=== PATIENT | male | born 2005 ===

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

== ENCOUNTER 2024-02-19 11:17 | Emergency (ER) | payer OTHER, SELFPAY ==
--- NOTE | 2024-02-19 11:27 | ED_ITS ---
HPI - URI/Sore Throat General Chief Complaint: Upper Respiratory Infection Stated Complaint: Strep Symptoms Time Seen by Provider: 02/19/24 11:30 Source: patient Mode of arrival: ambulatory Limitations: no limitations History of Present Illness HPI Narrative: Ramsey is a 18-year-old male patient presenting to the clinic today with complaints a sore throat x5 days. He reports no runny nose or cough. No known fever. States he felt dizzy on but that has subsided. No known sick contacts Related Data Allergies Allergy/AdvReac Type Severity Reaction Status Date / Time cefdinir [From Omnicef] Allergy Hives Verified 02/19/24 12:03 Review of Systems Review of Systems: Pertinent positives per HPI. Patient denies any fever, chills, rash, headache, visual changes, dizziness, cough, runny nose, sore throat, shortness of breath, chest pain, palpitations, nausea, vomiting, diarrhea, constipation, abdominal pain, or any urinary issues. PMFSH Comments At the time of my signature, I reviewed and agree with the nursing past medical, surgical, social, and family history. There is no relevant family history pertinent to the patient complaint. Exam Narrative: General: Well-developed, well nourished, in no apparent distress Head: Normocephalic, atraumatic Eyes: Pupils equally round and reactive to light bilaterally, EOM intact, sclera and conjunctive clear, no discharge, lids normal Ears: TMs intact and clear, ear canals clear, no drainage, grossly hearing normal. Nose: Nares patent, no discharge, no inflammation, no sinus tenderness. Mouth: Oropharynx red with bilateral tonsillar swelling without lesions or masses, good dentition, MMM. Neck: Supple, trachea midline, enlargement of anterior cervical nodes, no thyroid masses or goiter palpable. Cardio: Regular rate and rhythm, s1 and s2 normal, no murmur appreciated. Resp: Clear to auscultation bilaterally anteriorly and posteriorly, no rhonchi, rales, wheezing or rubs Course Course Emergency Course: Portions of this record may have been created with voice recognition software. Level of Care: Express Care Visit Vital Signs Vital signs: Vital Signs Temperature 37.2 C 02/19/24 11:37 Pulse Rate 95 02/19/24 11:37 Respiratory Rate 15 02/19/24 11:37 Blood Pressure 121/66 02/19/24 11:37 Pulse Oximetry 100 02/19/24 11:37 Oxygen Delivery Room Air 02/19/24 11:37 Temperature 37.2 C 02/19/24 11:37 Pulse Rate 95 02/19/24 11:37 Respiratory Rate 15 02/19/24 11:37 Blood Pressure 121/66 02/19/24 11:37 Pulse Oximetry 100 02/19/24 11:37 Oxygen Delivery Room Air 02/19/24 11:37 Vital signs reviewed MDM - URI/Sore Throat MDM Narrative Medical decision making narrative: At the time of visit patient is resting comfortably on the exam table. Patient appears to be nontoxic. Labs: Strep and mono testing was negative in the clinic today. We will send strep for culture. Plan: I suspect patient has pharyngitis. Will send over prescription for prednisone to help with the swelling and inflammation as well as some viscous lidocaine. Supportive measures were discussed with the patient and they voiced understanding discharge instructions and agrees to treatment plan. Return precautions reviewed Differential Diagnosis Differential diagnosis: Likely upper respiratory infection, croup, otitis media, sinusitis, viral infection, bronchitis, influenza, pharyngitis and other ([place]) Lab Data Labs: Lab Results 02/19/24 02/19/24 Range/Units 11:41 12:03 POC Monoscreen Negative (Positive) POC Grp A Strep Screen Negative (Negative) Discharge Plan Discharge Clinical Impression: Pharyngitis Patient Disposition: Home, Self-Care Condition: Stable Instructions: Antibiotic Form, Pharyngitis (ED) Additional Instructions: Strep and mono test was negative in the clinic today. We will send strep for culture. Take viscous lidocaine and prednisone as directed Increase fluids and stay well hydrated Tylenol/motrin for pain/fever Flonase and OTC antihistamines as directed Vicks vapor rub to open sinuses Sinus rinses for congestion Cepacol spray, cough drops, throat lozenges, warm tea with honey/lemon, gargle salt water to soothe throat BRAT diet for diarrhea Clear liquids x 24 hours then advance as tolerated for nausea/vomiting Go to the ED if you develop a worsening in your condition- high fever not controlled by Tylenol or Motrin, dehydration, weakness, lethargy, shortness of breath, or chest pain. Follow up with your PCP in 3-5 days if symptoms persist. Prescriptions: New prednisone 20 mg tablet 40 mg PO DAILY 5 Days Qty: 10 0RF lidocaine HCl [Lidocaine Viscous] 2 % solution 1 applic mucous membrane QID PRN (Reason: pain) 7 Days Qty: 100 1RF Follow-up/Referrals: Angela Bobby MD [Primary Care Provider] - Stand Alone Forms: Work/School Release IP Time of Disposition: 12:04 Quality NIHSS Nursing Documentation ED NIHSS nursing documentation: reviewed/agree
[2024-02-19 11:37] VITALS: BP 121/66; PULSE 95; RESP 15; TEMP 37.2; O2SAT 100
[2024-02-19 11:49] LABS: EDSTREPNEGPOS1 Negative (Negative)
[2024-02-19 12:08] LABS: EDMONONEGPOS Negative (Positive)
== END 2024-02-19 12:10 | disposition home or self-care (01) ==
PROVIDERS: Emergency Provider Nurse Practitioner Family; PCP Pediatrics
DX: J02.9 Acute pharyngitis, unspecified (principal)
CPT/HCPCS: 36416; 86308; 87081; 87880; 99203; G0463

== ENCOUNTER 2024-02-25 07:07 | Emergency (ER) | payer OTHER, SELFPAY ==
--- NOTE | ~2024-02-25 | CT_ITS ---
CT scan of the Neck Technique: 2.5 mm axial scans were obtained through the neck after intravenous administration of 75 c c Omnipaque 350. Coronal and sagittal reconstructions of the neck were obtained. Dose reduction techn ique was used on this scan by utilizing automated exposure control and iterative reconstruction techn ique. The dose-length product (DLP) was 598.84 mGy-cm. Clinical History: Peritonsillar abscess Findings: There is a 3.0 x 2.4 x 3.0 cm somewhat ill-defined right peritonsillar abscess, with mass effect resu lting in airway compression and deviation to the left at this level. There is mild infiltration of ri ght parapharyngeal fat. There is associated right cervical lymphadenopathy, especially level 2, presu mably reactive/inflammatory. Prominent edematous change extends inferiorly to the right side of the g lottic region, with swelling obscuring visualization of the right area epiglottic folds and laryngeal vestibule. Parotid and submandibular glands are unremarkable. Vascular structures enhance normally. The thyroid gland appears normal. Images of the lung apices reveal no abnormalities. Impression: 3.0 x 2.4 x 3.0 cm ill-defined right peritonsillar abscess with extensive edematous change extending inferiorly to the right glottic region. Associated predominantly level 2 right cervical lymphadenopathy, most likely reactive/inflammatory. Reviewed, dictated and finalized at [facility]. [employer]ICIAN Impression: 3.0 x 2.4 x 3.0 cm ill-defined right peritonsillar abscess with extensive edema tous change extending inferiorly to the right glottic region. Associated predominantly level 2 right cervical lymphadenopathy, most likely re active/inflammatory.
[2024-02-25 07:17] VITALS: BP 145/88; PULSE 85; RESP 16; TEMP 36.7; O2SAT 100
[2024-02-25] MEDS: SODIUM CHLORIDE 0.9% IV 1,000 ML 999 ML IV CONT (07:56)
--- NOTE | 2024-02-25 07:57 | ED.GENADULT ---
HPI - General Adult General Chief complaint: Unspecified Stated complaint: swelling to throat Time Seen by Provider: 02/25/24 07:26 History of Present Illness HPI narrative: patient is a 18-year-old gentleman who presents emergency department with chief complaint of sore throat. Patient reports that he has been having a sore throat pain with swallowing for the last several days patient reports he was seen in urgent care and had negative strep and negative mono the patient was started on steroids and reports that his sore throat has progressively got worse and hurts whenever he swallows the patient has noticed that his voice has become more muffled Related Data Allergies Allergy/AdvReac Type Severity Reaction Status Date / Time cefdinir (From Omnicef) Allergy Hives Verified 02/25/24 07:17 Review of Systems Review of Systems: A 10 system review of systems was completed on the patient and is negative except for what is stated in the HPI. Nursing and ancillary documentation was reviewed. Exam Narrative: GENERAL: Well-appearing, well-nourished, and in no acute distress. HEAD: Normocephalic, atraumatic. EYES: PERRLA and EOMI. ENT: Nares clear, no rhinorrhea or epistaxis. Mucous membranes moist. right tonsil is enlarged and appears to be asymmetrical compared to the left NECK: Supple. CHEST: Clear to auscultation. No respiratory distress. HEART: Regular rate and rhythm. No murmur heard. Normal peripheral pulses. ABDOMEN: Soft, nontender, nondistended, normal active bowel sounds. EXTREMITIES: Normal range of motion. No edema. SKIN: Warm, dry, no rash. NEURO: No focal deficits. Alert and oriented x3. PSYCH: Normal mood and affect. Course Vital Signs Vital signs: Vital Signs Temperature 36.7 C 02/25/24 07:17 Pulse Rate 85 02/25/24 07:17 Respiratory Rate 16 02/25/24 07:17 Blood Pressure 145/88 H 02/25/24 07:17 Pulse Oximetry 100 02/25/24 07:17 Oxygen Delivery Room Air 02/25/24 07:17 Temperature 36.7 C 02/25/24 07:17 Pulse Rate 107 H 02/25/24 12:08 Respiratory Rate 12 02/25/24 12:08 Blood Pressure 127/82 02/25/24 12:08 Pulse Oximetry 100 02/25/24 12:08 Oxygen Delivery Room Air 02/25/24 07:17 Medical Decision Making Vital Signs Vital Signs: Vital Signs Temperature 36.7 C 02/25/24 07:17 Pulse Rate 85 02/25/24 07:17 Respiratory Rate 16 02/25/24 07:17 Blood Pressure 145/88 H 02/25/24 07:17 Pulse Oximetry 100 02/25/24 07:17 Oxygen Delivery Room Air 02/25/24 07:17 Temperature 36.7 C 02/25/24 07:17 Pulse Rate 107 H 02/25/24 12:08 Respiratory Rate 12 02/25/24 12:08 Blood Pressure 127/82 02/25/24 12:08 Pulse Oximetry 100 02/25/24 12:08 Oxygen Delivery Room Air 02/25/24 07:17 Lab Data 02/25/24 07:51 02/25/24 07:51 Labs: Lab Results 02/25/24 02/25/24 Range/Units 07:39 07:51 WBC 15.4 H (4.5-10.0) K/mm3 RBC 5.32 (4.6-6.20) M/mm3 Hgb 15.8 (14.0-18.0) g/dL Hct 46.4 (42.0-52.0) % MCV 87.2 (80-100) fl MCH 29.7 (26-34) pg MCHC 34.1 (32-36) g/dl RDW 11.5 (11.5-14.5) % Plt Count 321 (150-375) k/mm3 MPV 8.7 (7.4-10.4) fl Immature Gran % (Auto) 0.6 H (0-0.5) % Neut % (Auto) 79.0 H (45.5-73.1) % Lymph % (Auto) 9.3 L (18.3-44.2) % [place] % (Auto) 9.7 H (2.6-8.5) % Eos % (Auto) 1.0 (0-4.4) % Baso % (Auto) 0.4 (0.2-1.2) % Lymph # (Auto) 1.44 (0.9-3.2) K/mm3 [place] # (Auto) 1.5 H (0.1-0.6) K/mm3 Eos # (Auto) 0.2 (0-0.3) K/mm3 Baso # (Auto) 0.1 (0.0-0.1) K/mm3 Abs Immat Gran (auto) 0.10 H (0.00-0.031) K/mm3 Absolute Neuts (auto) 12.2 H (1.3-6.7) K/mm3 Absolute Nucleated RBC 0.000 (0.0-0.012) K/mm3 Nucleated RBC % 0.0 (0.0-0.2) % Sodium 139 (134-143) mmol/L Potassium 3.7 (3.4-5.0) mmol/L Chloride 100 (98-107) mmol/L Carbon Dioxide 31 H (22-30) mmol/L Anion Gap 8 (4-12) mmol/L BUN 9 (8-21) mg/dL Creatinine 0.90 (0.7-1.3) mg/dL Estim Creat Clear Calc Not Reportable Estimated GFR > 60 (59 - ) Glucose 118 H (65-110) mg/dL Lactic Acid 1.1 (0.7-2.0) mmol/L Calcium 9.5 (8.9-10.7) mg/dL Total Bilirubin 0.9 (0.2-1.3) mg/dL AST 18 (17-59) U/L ALT 21 (6-50) U/L Alkaline Phosphatase 102 (58-237) U/L Total Protein 9.0 H (6.3-8.6) g/dL Albumin 4.5 (3.7-5.6) g/dL Influenza A (RT-PCR) Negative (Negative) Influenza B (RT-PCR) Negative (Negative) RSV (RT-PCR) Negative (Negative) SARS-CoV-2 RNA (RT-PCR) Negative (Negative) Group A Strep (PCR) Not detected (Negative) Discharge Plan Discharge Clinical Impression: Abscess, peritonsillar Patient Disposition: Home, Self-Care Condition: Stable Instructions: Antibiotic Form, Peritonsillar Abscess (ED) Additional Instructions: please call Dr. Simental's office on Monday morning to schedule for a follow-up appointment. Patient Language: Cuban Prescriptions: New amoxicillin-pot clavulanate 875-125 mg tablet 1 tablet PO Q12H 10 Days Qty: 20 0RF hydrocodone-acetaminophen 5-325 mg tablet 1 tablet PO Q6H PRN (Reason: pain) 3 Days Qty: 12 0RF No Action prednisone 20 mg tablet 40 mg PO DAILY 5 Days Qty: 10 0RF lidocaine HCl [Lidocaine Viscous] 2 % solution 1 applic mucous membrane QID PRN (Reason: pain) 7 Days Qty: 100 1RF Follow-up/Referrals: Pablo Simental MD [Other] Angela Bobby MD [Primary Care Provider] - Time of Disposition: 12:25
[2024-02-25] MEDS: dexAMETHasone SOD PHOS INJ 10 MG/ML 1 ML VIAL IV PUSH (07:59)
[2024-02-25] MEDS: KETOROLAC 15 MG/ML VIAL (*BKC) IV PUSH (07:59)
[2024-02-25 08:01] VITALS: BP 121/79; PULSE 76; RESP 12; O2SAT 97
[2024-02-25 08:04] LABS: Basophils Absolute Auto 0.1 K/mm3 (0.0-0.1); Basophils Percent Auto 0.4 % (0.2-1.2); Eosinophils Absolute Auto 0.2 K/mm3 (0-0.3); Hematocrit 46.4 % (42.0-52.0); Hemoglobin 15.8 g/dL (14.0-18.0); Immature Granulocyte Percent A 0.6 % (0-0.5); Lymphocytes Absolute Auto 1.44 K/mm3 (0.9-3.2); Lymphocytes Percent Auto 9.3 % (18.3-44.2); Mean Corpuscular HGB Conc 34.1 g/dl (32-36); Mean Corpuscular Hemoglobin 29.7 pg (26-34); Mean Corpuscular Volume 87.2 fl (80-100); Mean Platelet Volume 8.7 fl (7.4-10.4); Monocytes Absolute Auto 1.5 K/mm3 (0.1-0.6); Monocytes Percent Auto 9.7 % (2.6-8.5); Neutrophils Absolute Auto 12.2 K/mm3 (1.3-6.7); Platelet Count Result 321 k/mm3 (150-375); Red Blood Count 5.32 M/mm3 (4.6-6.20); Red Cell Distribution Width 11.5 % (11.5-14.5); White Blood Count 15.4 K/mm3 (4.5-10.0)
[2024-02-25 08:08] LABS: Strep Group A RT-PCR NOT DETECTED (Negative)
[2024-02-25 08:19] LABS: Influenza A QL RT-PCR Negative (Negative); Influenza B QL RT-PCR Negative (Negative); RSV RNA, RT-PCR Negative (Negative); SARS-CoV-2 RNA PCR Negative (Negative)
[2024-02-25 08:22] LABS: Alanine Aminotransferase 21 U/L (6-50); Albumin Level 4.5 g/dL (3.7-5.6); Alkaline Phosphatase 102 U/L (58-237); Anion Gap 8 mmol/L (4-12); Aspartate Amino Transferase 18 U/L (17-59); Bilirubin,Total 0.9 mg/dL (0.2-1.3); Blood Urea Nitrogen 9 mg/dL (8-21); Calcium 9.5 mg/dL (8.9-10.7); Carbon Dioxide 31 mmol/L (22-30); Chloride 100 mmol/L (98-107); Estimated Glomerular Filt Rate > 60; Glucose 118 mg/dL (65-110); Potassium 3.7 mmol/L (3.4-5.0); Sodium 139 mmol/L (134-143)
[2024-02-25 08:24] LABS: Lactic Acid Reflex 1.1 mmol/L (0.7-2.0)
[2024-02-25 09:25] VITALS: BP 135/77; PULSE 77; RESP 13; O2SAT 98
[2024-02-25] MEDS: AMPICILLIN SULB 3 GM/NS 100 ML 3 GM/100 ML VIAL IVPB (09:25)
[2024-02-25 10:34] VITALS: BP 116/61; PULSE 94; RESP 15; O2SAT 99
--- NOTE | 2024-02-25 11:12 | PC.NURSE ---
Report given to Luz Elena DUMONT, all questions answered
[2024-02-25 12:08] VITALS: BP 127/82; PULSE 107; RESP 12; O2SAT 100
--- NOTE | 2024-02-25 12:20 | P.CONS_ITS ---
Assessment and Plan Assessment and plan (1) Abscess, peritonsillar: Code(s): J36 - Peritonsillar abscess Status: Acute Plan After consent was obtained, topical acetacaine sprayed to oropharynx. 1% lidocaine was infilrated into the soft palate. A 2cm incision was made with 11 blade and dissection performed with tonsil clamp and significant purulent fluid drained from abscess. This was done several times until satisfied with I&D. Pt tolerated without complication. Ramsey had a right TECHNICAL IMPLEMENTATION LEAD. Drained in ER. Send home with antibiotics. Reviewed return parameters with pt and father today. Follow up in ENT clinic next week. HPI Data of Consult Date/Time: 02/25/24 12:20 Primary Care Provider: Angela Bobby MD Consult Narrative Reason for consult: Peritonsillar abscess Narrative: Ramsey Becerril is a 18 year old male with right peritonsillar abscess, onset over about a week, progressive. was given steroid taper by UC, no abx, came to ER today after not improving and imaging showed right [employer]CHNICAL IMPLEMENTATION LEAD Review of Systems 2 Review of Systems: All systems reviewed & are unremarkable except as noted in HPI and below Meds Home Medications and Allergies Home Medications ?Medication ?Instructions ?Recorded ?Confirmed ?Type lidocaine HCl 2 % mucosal solution 1 applic mucous membrane QID PRN 02/19/24 Rx (Lidocaine Viscous) pain 7 days #100 mL prednisone 20 mg tablet 40 mg (2 x 20 mg) PO DAILY 5 days 02/19/24 Rx #10 tabs amoxicillin 875 mg-potassium 1 tablet PO Q12H 10 days #20 tabs 02/25/24 Rx clavulanate 125 mg tablet hydrocodone 5 mg-acetaminophen 325 1 tablet PO Q6H PRN pain 3 days 02/25/24 Rx mg tablet #12 tabs Allergies Allergy/AdvReac Type Severity Reaction Status Date / Time cefdinir (From Omnicef) Allergy Hives Verified 02/25/24 07:17 Vital Signs Vital Signs - 24 hr 02/25/24 07:17 02/25/24 08:01 02/25/24 09:25 Temperature 36.7 C Pulse Rate 85 76 77 Respiratory Rate 16 12 13 Blood Pressure 145/88 H 121/79 135/77 Pulse Oximetry 100 97 98 Oxygen Delivery Room Air 02/25/24 10:34 02/25/24 12:08 Temperature Pulse Rate 94 107 H Respiratory Rate 15 12 Blood Pressure 116/61 127/82 Pulse Oximetry 99 100 Oxygen Delivery Exam 2 Narrative: Moderate trismus. No stridor. Pt not in distress. Exam of OP shows large right soft palate bulge, uvular deviation with significant uvular edema, right tonsillar hypertrophy. Airway clear and secretions tolerated. Const: General: cooperative Results Labs 02/25/24 07:51 02/25/24 07:51 Labs: Short CBC 02/25/24 Range/Units 07:51 WBC 15.4 H (4.5-10.0) K/mm3 Hgb 15.8 (14.0-18.0) g/dL Hct 46.4 (42.0-52.0) % Plt Count 321 (150-375) k/mm3 BMP 02/25/24 07:51 Sodium 139 Potassium 3.7 Chloride 100 Carbon Dioxide 31 H BUN 9 Creatinine 0.90 Glucose 118 H Calcium 9.5 Liver Function 02/25/24 Range/Units 07:51 Total Bilirubin 0.9 (0.2-1.3) mg/dL AST 18 (17-59) U/L ALT 21 (6-50) U/L Alkaline Phosphatase 102 (58-237) U/L Albumin 4.5 (3.7-5.6) g/dL
[2024-02-25 12:56] VITALS: BP 117/78; PULSE 71; RESP 16; TEMP 36.9; O2SAT 100
--- OUTSIDE RECORDS SUMMARY | 2024-02-29 16:03 | XMS_ITS | Clinical Summary ---
Author Organization [facility] Address [address] [place] [address] Care Team Providers Care Supervisor Tellers Name Role Phone Angela Bobby MD Primary Care Provider [phone] Source Comments [facility],non-owned Affiliates and Associated Physician Practices is amultiple site organization consisting of ambulatory clinics and hospital sitesin [place], [place], [place] and [place]. This disclosure is being madepursuant to the Care Everywhere program and may not contain all information available regarding this patient. Last updated 17.[facility] Allergies Active Allergy Reactions Criticality Noted Date Comments Cefdinir Rash High 05/11/2010 Medications * Be aware that medications may not be up to date on this document. Alwaysverify current medications with the patient. Medication Sig Dispensed Refills Start Date End Date Status ibuprofen (ADVIL; MOTRIN) 100 MG/5ML SUSP suspension Take 150 mg by mouth every 6 hours as needed. Active amoxicillin (AMOXIL) 400 MG/5ML SUSR suspension Take 5 mL by mouth 3 times daily. 1 Bottle 0 05/11/2010 Active Social History Tobacco Use Types Packs/Day Years Used Date Smoking Tobacco: Never Assessed Sex and Gender Information Value Date Recorded Sex Assigned at Not on file Gender Identity Not on file Sexual Orientation Not on file Last Filed Vital Signs Vital Sign Reading Time Taken Comments Blood Pressure 99/57 05/11/2010 7:58 PM LANGUAGE ASST Pulse 120 05/11/2010 9:47 PM LANGUAGE ASST Temperature 38.2 ??C (100.8 ??F) 05/11/2010 9:[address] Respiratory Rate 28 05/11/2010 9:47 PM LANGUAGE ASST Oxygen Saturation 98% 05/11/2010 9:47 PM LANGUAGE ASST RA Inhaled Oxygen Concentration - - Weight 22.5 kg (49 lb 9.7 oz) 05/11/2010 4:12 PM LANGUAGE ASST Height - - Body Mass Index - - Plan of Treatment Health Maintenance Due Date Last Done Comments HIV SCREENING 10/09/2019 HPV VACCINE (1 - Male 3-dose series) 10/09/2019 HEPATITIS C SCREENING 10/04/2022 DEPRESSION SCREENING 03/13/2023 DTAP/TDAP/TD VACCINES (1 - Tdap) 10/09/2023 HEPATITIS B VACCINE (1 of 3 - 19+ 3-dose series) 10/09/2023 COVID-19 VACCINE (1 - 2023-2 5 season) 2023 INFLUENZA VACCINE (#1) 2023 ZOSTER VACCINE (1 of 2) 2054 HIB VACCINE Aged Out No longer eligi ble based on patient's age to complete this topic MENINGOCOCCAL VACCINE Aged Out No amanda nick eligible based on patient's age to complete this topic PNEUMOCOCCAL VACCINE Aged Out No long er eligible based on patient's age to complete this topic Care Teams Supervisor Tellers Relationship Specialty Start Date End Date Angela Bobby MD [address] [place] [address] PCP - General 09/08/10
--- OUTSIDE RECORDS SUMMARY | 2024-02-29 16:03 | XMS_ITS | Patient Health Summary ---
Author Organization [facility] Address [address] [place] [address] Care Team Providers Care Barmaid Name Role Phone Angela Bobby MD Primary Care Provider [phone] Note from [facility],non-owned Affiliates and Associated Physician Practices is amultiple site organization consisting of ambulatory clinics and hospital sitesin [place], [place], [place] and [place]. This disclosure is being madepursuant to the Care Everywhere program and may not contain all information available regarding this patient. Last updated 17.[facility] Allergies * Cefdinir(Rash) -High Criticality Medications * Be aware that medications may not be up to date on this document. Alwaysverify current medications with the patient. * ibuprofen (ADVIL; MOTRIN) 100 MG/5ML SUSP suspension Take 150 mg by mouth every 6 hours as needed. * amoxicillin (AMOXIL) 400 MG/5ML SUSR suspension(Started 05/11/2010) Take 5 mL by mouth 3 times daily. Social History Tobacco Use Types Packs/Day Years Used Date Smoking Tobacco: Never Assessed Sex and Gender Information Value Date Recorded Sex Assigned at Not on file Gender Identity Not on file Sexual Orientation Not on file Last Filed Vital Signs Vital Sign Reading Time Taken Comments Blood Pressure 99/57 05/11/2010 7:58 PM CRITICAL CARE CLINICAL NURSE SPECIALIST Pulse 120 05/11/2010 9:47 PM CRITICAL CARE CLINICAL NURSE SPECIALIST Temperature 38.2 ??C (100.8 ??F) 05/11/2010 9:[address] Respiratory Rate 28 05/11/2010 9:47 PM CRITICAL CARE CLINICAL NURSE SPECIALIST Oxygen Saturation 98% 05/11/2010 9:47 PM CRITICAL CARE CLINICAL NURSE SPECIALIST RA Inhaled Oxygen Concentration - - Weight 22.5 kg (49 lb 9.7 oz) 05/11/2010 4:12 PM CRITICAL CARE CLINICAL NURSE SPECIALIST Height - - Body Mass Index - - Procedures * XR CHEST 2VW(Performed 09/08/2010) Performed for Follow-up exam * DIFFERENTIAL MANUAL(Performed 05/11/2010) * CBC W AUTO DIFFERENTIAL(Performed 05/11/2010) * CULTURE BLOOD(Performed 05/11/2010) * XR CHEST 2VW(Performed 05/11/2010) Performed for Viral infection * URINALYSIS REFLEX TO MICROSCOPIC NO CULTURE(Performed 05/11/2010) * CULTURE URINE(Performed 05/11/2010) Results * XR CHEST PA AND LATERAL (09/08/2010 10:31 AM CDT) Only the most recent of2 resultswithin the time period is included. Anatomical Region Laterality Modality Chest Radiographic Marylu ging 09/08/2010 10:3 4 AM CDT Impressions 09/08/2010 2:16 PM CDT Resolved right upper lobe round pneumonia. D: Pamela Hinojosa M.D. Narrative 09/08/2010 2:16 PM CDT Chest, 2 views The previously noted right upper lobe round opacity has resolved. The heart, mediastinum and thorax are normal. Procedure Note Chiara Phillips MD - 09/08/2010 Chest, 2 views The previously noted right upper lobe round opacity has resolved. The heart, mediastinum and thorax are normal. IMPRESSION Resolved right upper lobe round pneumonia. D: Pamela Hinojosa M.D. Angela Bobby MD DIAGNOSTIC IMAGING ORDERABLES * (ABNORMAL) DIFFERENTIAL MANUAL (05/11/2010 8:24 PM CRITICAL CARE CLINICAL NURSE SPECIALIST) Comment Manual Diff Done [facility] Band % Manual 10 % [facility] Neutrophils % Manual 52 20 - 70 % [facility] Lymphocytes % Manual 22 16 - 70 % [facility] Monocytes % Manual 14(H) 3 - 13 % [facility] Atypical Lymphocyte % Manual 2 % [facility] RBC Morphology Slight Anisocytosis Poikylocytosis [facility] BLOOD SPECIMEN / Unknown 05/11/2010 8:24 PM CRITICAL CARE CLINICAL NURSE SPECIALIST 05/11/2010 8:32 PM CRITICAL CARE CLINICAL NURSE SPECIALIST Janette Benites MD LAB - HEMATOLOGY ORD ERABLES Performing Organization Address [facility] Co de Phone Number [facility] [address] [place] [address] * (ABNORMAL) CBC W AUTO DIFFERENTIAL (05/11/2010 8:24 PM CRITICAL CARE CLINICAL NURSE SPECIALIST) WBC 17.89(H) 5.0 - 14.5 K/cumm [facility] RBC 4.15 3.90 - 5.30 mill/cumm [facility] Hemoglobin 11.6 11.5 - 13.5 gm/dl [facility] Hematocrit 33.3(L) 34.0 - 40.0 % [facility] MCV 80.2 75.0 - 87.0 cu microns [facility] MCH 28.0 24.0 - 30.0 uug [facility] MCHC 34.8 31.0 - 37.0 % [facility] RDW 13.4 % [facility] MPV 8.6 fl [facility] Platelet Count 220 100 - 400 K/cumm [facility] Comment Manual Diff Done [facility] BLOOD SPECIMEN / Unknown 05/11/2010 8:24 PM CRITICAL CARE CLINICAL NURSE SPECIALIST 05/11/2010 8:26 PM CRITICAL CARE CLINICAL NURSE SPECIALIST Janette Benites MD LAB - HEMATOLOGY ORD ERABLES Performing Organization Address [facility] Co de Phone Number [facility] [address] [place] [phone] * CULTURE BLOOD (05/11/2010 6:50 PM CRITICAL CARE CLINICAL NURSE SPECIALIST) Result [facility] Comment: Final No growth in 5 days. PERIPHERAL BLOOD / Unknown 05/11/2010 6:50 PM CRITICAL CARE CLINICAL NURSE SPECIALIST 05/11/2010 7:12 PM CRITICAL CARE CLINICAL NURSE SPECIALIST Narrative Resulting Agency Comment Performed By [facility];[address] [place] [address];[place] [address] Mahin Cooper DO LAB - MICROBIOLOGY O RDERABLES Performing Organization Address [facility]/ZIP Co de Phone Number [facility] [address] [place] [address] * (ABNORMAL) URINALYSIS ROUTINE AUTO (05/11/2010 5:35 PM CRITICAL CARE CLINICAL NURSE SPECIALIST) Color UA YELLOW [facility] Character UA SL CLOUDY [facility] Specific [place] UA >=1.030 1.003 - 1.030 [facility] pH UA 6.0 5.0 - 8.0 [facility] Protein UA 1+ Negative [facility] Glucose UA NEGATIVE Negative gm/dl [facility] Ketone UA 3+(AA) Negative [facility] Blood UA NEGATIVE Negative [facility] Bilirubin UA NEGATIVE Negative [facility] Reducing Substances UA 1/4(H) Negative % [facility] WBC UA 2-4 /HPF [facility] Epithelial Cell UA 0-2 /HPF [facility] Crystals UA Small Amorphous [facility] Mucus UA mod [facility] Bacteria UA sm [facility] Leukocyte UA NEGATIVE [facility] Nitrite UA NEGATIVE [facility] Urobilinogen UA 0.2 <=1.0 EU/dl [facility] URINE SPECIMEN OBTAINED BY CLEAN CATCH PROCEDURE / Unknown 05/11/2010 5:35 PM CRITICAL CARE CLINICAL NURSE SPECIALIST 05/11/2010 6:14 PM CRITICAL CARE CLINICAL NURSE SPECIALIST Janette Benites MD LAB - URINALYSIS ORD ERABLES Performing Organization Address City/[facility] Co de Phone Number [facility] [place] [address] * CULTURE URINE (05/11/2010 5:35 PM CRITICAL CARE CLINICAL NURSE SPECIALIST) Result [facility] Comment: Final CULTURE <1000 CFU/mL (No growth) URINE SPECIMEN OBTAINED BY CLEAN CATCH PROCEDURE / Unknown 05/11/2010 5:35 PM CRITICAL CARE CLINICAL NURSE SPECIALIST 05/11/2010 6:14 PM CRITICAL CARE CLINICAL NURSE SPECIALIST Narrative Resulting Agency Comment Performed By [facility];[address];[place] [address] Janette Benites MD LAB - MICROBIOLOGY O RDERABLES Performing Organization Address City/[facility]/ZIP Co de Phone Number [facility] [address] [place] [phone] Care Teams Barmaid Relationship Specialty Start Date End Date Angela Bobby MD [address] [place] [address] [facility] - General 09/08/10
--- OUTSIDE RECORDS SUMMARY | 2024-02-29 16:03 | XMS_ITS | Encounter Summary ---
Author Organization [facility] Address [address] [place] [address] Care Team Providers Care Automation And Controls Instructor Name Role Phone Angela Bobby MD Primary Care Provider [phone] Encounter Details Date Type Department Care Team (Latest Contact Info) Description 09/08/2010 10:25 AM CDT - 09/08/2010 11:59 PM CDT Hospital Encounter [facility] - Radiology [address] [place] [id number] Discharge Disposition: Home or Self Care Social History Tobacco Use Types Packs/Day Years Used Date Smoking Tobacco: Never Assessed Sex and Gender Information Value Date Recorded Sex Assigned at Not on file Gender Identity Not on file Sexual Orientation Not on file documented as of this encounter Medications at Time of Discharge Medication Sig Dispensed Refills Start Date End Date ibuprofen (ADVIL; MOTRIN) 100 MG/5ML SUSP suspension Take 150 mg by mouth every 6 hours as needed. amoxicillin (AMOXIL) 400 MG/5ML SUSR suspension Take 5 mL by mouth 3 times daily. 1 Bottle 0 05/11/2010 documented as of this encounter Miscellaneous Notes * Miscellaneous Scans - Document, Scanned - 09/14/2010 4:13 PM CDT * Miscellaneous Scans - Document, Scanned - 09/13/2010 6:48 AM CDT documented in this encounter Plan of Treatment Not on file documented as of this encounter Procedures Procedure Name Priority Date/Time Associated Diagnosis Comments XR CHEST 2VW Routine 09/08/2010 10:31 AM CDT Follow-up exam documented in this encounter Results * XR CHEST PA AND LATERAL (09/08/2010 10:31 AM CDT) Anatomical Region Laterality Modality Chest Radiographic Marylu [...] M.D. Angela Bobby MD DIAGNOSTIC IMAGING ORDERABLES documented in this encounter Visit Diagnoses Diagnosis Follow-up exam Unspecified follow-up examination documented in this encounter Care Teams Automation And Controls Instructor Relationship Specialty Start Date End Date Angela Bobby MD [address] [place] [address] PCP - General 09/08/10 documented as of this encounter
--- OUTSIDE RECORDS SUMMARY | 2024-02-29 16:03 | XMS_ITS | Encounter Summary ---
Author Organization [facility] Address [address] [place] [address] Care Team Providers Care Geological Science Teacher Name Role Phone Angela Bobby MD Primary Care Provider [phone] Encounter Details Date Type Department Care Team (Latest Contact Info) Description 09/08/2010 10:08 AM CDT - 09/08/2010 11:59 PM T Hospital Encounter [facility] - Radiology [address] [place] [address] Angela Bobby MD [address] [facility] [address] [place] [address] Radiology Diagnostic Discharge Disposition: Home or Self Care Social [...] 0 05/11/2010 documented as of this encounter Plan of Treatment Not on file documented as of this encounter Visit Diagnoses Not on filedocumented in this encounter Care Teams Geological Science Teacher Relationship Specialty Start Date End Date Angela Bobby MD [address] [facility] [address] [place] [address] PCP - General 09/08/10 documented as of this encounter
--- OUTSIDE RECORDS SUMMARY | 2024-02-29 16:03 | XMS_ITS | Encounter Summary ---
Author Organization [facility] Address [address] [address] Care Team Providers Care Retail Sales Consultant Name Role Phone Irene Reynolds MD Primary Care Provider [phone] Reason for Visit * Reason Comments Fever 1 d. h/o fever Tmax 104; seen by Dr. Reynolds today and sent here for further eval; denies cough. dec po today; uop x1 today. lungs clear. Encounter Details Date Type Department Care Team (Late st Contact Info) Description 05/11/2010 3:51 PM CLINICAL MEDICAL ASSISTANT - 05/11/2010 9:49 PM CLINICAL MEDICAL ASSISTANT Emergency ER at [address] [address] Janette Benites MD [address] [place], [place] [id number] Viral infection; Pneumonia, organism unspecified Discharge Disposition: Home or Self Care Social History Tobacco Use Types Packs/Day Years Used Date Smoking Tobacco: Never Assessed Sex and Gender Information Value Date Recorded Sex Assigned at Not on file Gender Identity Not on file Sexual Orientation Not on file documented as of this encounter Last Filed Vital Signs Vital Sign Reading Time Taken Comments Blood Pressure 99/57 05/11/2010 7:58 PM CLINICAL MEDICAL ASSISTANT Pulse 120 05/11/2010 9:47 PM CLINICAL MEDICAL ASSISTANT Temperature 38.2 ??C (100.8 ??F) 05/11/2010 9:[address] Respiratory Rate 28 05/11/2010 9:47 PM CLINICAL MEDICAL ASSISTANT Oxygen Saturation 98% 05/11/2010 9:47 PM CLINICAL MEDICAL ASSISTANT RA Inhaled Oxygen Concentration - - Weight 22.5 kg (49 lb 9.7 oz) 05/11/2010 4:12 PM CLINICAL MEDICAL ASSISTANT Height - - Body Mass Index - - documented in this encounter Discharge Instructions * Discharge Instructions* Ronald Fournier RN - 05/11/2010 9:35 PM CLINICAL MEDICAL ASSISTANT Antibiotic Treatment and Drug Resistance Antibiotics are very helpful drugs. They are used to treat bacterial infections. But they do not help viral infections. Because antibiotics are used so often, some bacteria do not respond to them. Respiratory illnesses are mostly caused by viral infections. These will get better without using antibiotics. If an antibiotic is prescribed for a viral illness, a patient may notice bad side effects. Some of these may be: ?? Allergic reactions. ?? Diarrhea. ?? Abdominal discomfort. ?? Vomiting. ?? Yeast infection. Antibiotics also can be expensive. Paying for an antibiotic to treat a viral illness is both a medical risk and a waste of money. The use of antibiotics has fostered the growth of resistant bacteria. These bacteria can cause infections which are harder to treat. For these reasons, doctors are more selective in prescribing antibiotics. If you have not received an antibiotic today, be sure to follow up as directed if you are not improving. If you have received an antibiotic, take it as directed. Finish the full course. Keep your caregiver informed of any side effects. Document Released: 04/06/2005 Document Re-Released: 08/15/2008 ExitCare?? Patient Information ??2010 ExitCare, Antibiotic Treatment and Drug Resistance Antibiotics are very helpful drugs. They are used to treat bacterial infections. But they do not help viral infections. Because antibiotics are used so often, some bacteria do not respond to them. Respiratory illnesses are mostly caused by viral infections. These will get better without using antibiotics. If an antibiotic is prescribed for a viral illness, a patient may notice bad side effects. Some of these may be: ?? Allergic reactions. ?? Diarrhea. ?? Abdominal discomfort. ?? Vomiting. ?? Yeast infection. Antibiotics also can be expensive. Paying for an antibiotic to treat a viral illness is both a medical risk and a waste of money. The use of antibiotics has fostered the growth of resistant bacteria. These bacteria can cause infections which are harder to treat. For these reasons, doctors are more selective in prescribing antibiotics. If you have not received an antibiotic today, be sure to follow up as directed if you are not improving. If you have received an antibiotic, take it as directed. Finish the full course. Keep your caregiver informed of any side effects. Document Released: 04/06/2005 Document Re-Released: 08/15/2008 ExitCare?? Patient Information ??2009 [employer]. Viral Illness Your exam indicates you have a viral illness. SYMPTOMS ?? Fever. ?? Muscle aches. ?? Headache. ?? Fatigue. ?? Stomach upsets. ?? Sore throat. ?? Dry cough. Antibiotic drugs are not effective in viral illnesses. They are only given when there is a secondary bacterial infection. TREATMENT ?? Bed rest. ?? Increasing oral fluid intake of clear, non-caffeinated drinks like marimar emily, fruit juices, water, or sports (electrolyte) drinks, and ?? Medicine to relieve specific symptoms such as cough, pain, or diarrhea. Only take qzyc-meg-oryfwmi or prescription medicines for pain, discomfort, or fever as directed by your caregiver. Please call your caregiver if you are not better after 2-3 days of symptom treatment. CALL OR RETURN HERE RIGHT AWAY IF YOUR ILLNESS GETS MORE SEVERE, OR YOU DEVELOP ANY OTHER NEW SYMPTOMS, SUCH ?? A fever above 103?? F (39.4?? C). ?? Vomiting for more than a day. ?? Severe headache or other pain. ?? Stiff neck. ?? Trouble breathing. ?? Visual problems. ?? Blackouts or fainting. Document Released: 04/06/2005 Document Re-Released: 08/15/2008 ExitCare?? Patient Information ??2009 [employer]. Pneumonia Pneumonia is an infection of the lungs which may be viral or bacterial (with germs). Most forms of infectious (disease producing) pneumonias are bacterial. This means they are caused by a germ. Usually these infections are caused by breathing in infectious particles into the lungs (respiratory tract). SYMPTOMS The most common problems (symptoms) are: ?? Cough. ?? Fever. ?? Chest pain. ?? Increased rate of breathing. ?? Wheezing. ?? Sputum production. DIAGNOSIS Often these infections are diagnosed on exam by your caregiver. Sometimes the diagnosis may requirechest x-rays, blood analysis, and or cultures. ?? Your caregiver may do tests (such as blood gasses or pulse oximetry) to see how well your lungs are working. ?? Blood cultures may be done to help find the cause of your pneumonia. TREATMENT The bacterial pneumonias generally respond well to antibiotics (medications which kill germs). Viral infections must run their course. These infections will not respond to antibiotics. A pneumococcalvaccine (shot) is available to prevent a common bacterial pneumonia. This is usually suggested for the elderly and for other groups of higher risk individuals, such as those on chemotherapy or those that have problems with their immune system. ?? You will have pneumococcal screening or vaccination if you are over 65 years old and are not immunized. ?? If you are a smoker, it is time to quit. You will receive instructions on how to best stop smoking. Your caregivers can provide medications and counseling to help you quit. HOME CARE INSTRUCTIONS ?? Cough suppressants may be used if you are losing too much rest; however cough protects you by clearing your lungs. This is one reason for not using cough suppressants, if able, as they take away this protection. ?? Your caregiver may have prescribed an antibiotic if she or he feels your cough is caused by a bacterial infection. Take all your medication until you are finished. ?? Your caregiver may also prescribe an expectorant to loosen the mucus to be coughed up. ?? Only take gdau-eio-ijhcyyn or prescription medicines for pain, discomfort, or fever as directed by your caregiver. ?? Smoking is a common cause of bronchitis and can contribute to pneumonia. Stopping this habit is an important self help step. ?? A cold steam vaporizer or humidifier in your room or home may help loosen mucus. ?? Cough is most often worse at night. Sleeping in a semi-upright position in a recliner, or using a couple pillows under your head will help with this. ?? Get rest as you feel it is needed. Your body will usually let you know when to rest. ?? If you are a smoker and continue to smoke, your cough may last several weeks after your pneumonia has cleared. SEEK IMMEDIATE MEDICAL CARE IF: ?? You develop more purulent (pus like) sputum, have uncontrolled temperature, or your illness becomes worse. This is especially true if you are elderly or weakened from any other disease. ?? You cannot control your cough with suppressants and are losing sleep. ?? You begin coughing up blood. ?? You develop pain which is getting worse or is uncontrolled with medications. ?? You develop an oral temperature above 102?? F (38.9?? C), after being afebrile (not having a temperature for one or more days). ?? Any of the symptoms which initially brought you in for treatment are getting worse rather than better, or you develop shortness of breath or chest pain. Dial your local emergency service (911 in the [place] for immediate emergency care. MAKE SURE YOU: ?? Understand these instructions. ?? Will watch your condition. ?? Will get help right away if you are not doing well or get worse. Document Released: 02/27/2006 Document Re-Released: 05/26/2009 ExitCare?? Patient Information ??2009 [employer]. ICAL MEDICAL ASSISTANT * Discharge Instructions* Document, Scanned - 05/24/2010 8:01 AM CDT documented in this encounter Medications at Time of Discharge Medication Sig Dispensed Refills Start Date End Date ibuprofen (ADVIL; MOTRIN) 100 MG/5ML SUSP suspension Take 150 mg by mouth every 6 hours as needed. amoxicillin (AMOXIL) 400 MG/5ML SUSR suspension Take 5 mL by mouth 3 times daily. 1 Bottle 0 05/11/2010 documented as of this encounter ED Notes * Ronald Fournier RN - 05/11/2010 9:48 PM CST Pt awake & alert. LCTA with good aeration, MMM. Pt emir 4oz juice without diff. Pt & parentsinstructed to encourage large amounts of fluids & all verbalize understanding. NAD noted. ICAL MEDICAL ASSISTANT * Ronald Fournier RN - 05/11/2010 7:25 PM CST BS report received from Briseyda Nova RN & care assumed. Pt awake & alert. Pt tearful from blood draw. Pt denies any other pain/discomfort. LCTA with good aeration, MMM, pt crying tears, no s/s resp distress or WOB noted. ICAL MEDICAL ASSISTANT * Briseyda Fenton RN - 05/11/2010 6:59 PM CST Pt has had chest xray complete. Back in room eating popsicle Parents at bedside. ICAL MEDICAL ASSISTANT * Briseyda Fenton RN - 05/11/2010 6:19 PM CST Pt eating and taking juice. Voices no c/o at this time Parents at bedside updated on plan. ICAL MEDICAL ASSISTANT * Briseyda Fenton RN - 05/11/2010 5:47 PM CST Pt attempted to give urine mom instructed how to cleanse , pt could not give specimen at this time Dr Benites has been in to speak to dad while pt was in the bathroom. ICAL MEDICAL ASSISTANT * Janette Benites MD - 05/11/2010 5:15 PM CST 05/11/2010 5:15 PM Ramsey Becerril [id number] [facility] EMERGENCY DEPT History Chief Complaint Patient presents with ??? Fever 1 d. h/o fever Tmax 104; seen by Dr. Reynolds today and sent here for further eval; denies cough. dec po today; uop x1 today. lungs clear. HPI Comments: Ramsey Becerril is a 4 y.o. Male previously well, sent in by PMD for evaluation of feverto 103 which started yesterday. Had fever last week as well, taking motrin with some improvement. Pain when he urinates. No cough Or congestion. No sore throat, no nausea or vomiting. Little more tired today neg RS and flu in the PMD office No past medical history on file. No past surgical history on file. History Social History ??? Marital Status: Single Spouse Name: N/A Number of Children: N/A ??? Years of Education: N/A Occupational History ??? Not on file. Social History Main Topics ??? Smoking status: Not on file ??? Smokeless tobacco: Not on file ??? Alcohol Use: Not on file ??? Drug Use: Not on file ??? Sexually Active: Not on file Other Topics Concern ??? Not on file Social History Narrative ??? No narrative on file Medications Current outpatient prescriptions Medication Sig Dispense Refill ??? ibuprofen (ADVIL; MOTRIN) 100 MG/5ML SUSP suspension Take 150 mg by mouth every 6 hours as needed. ??? amoxicillin (AMOXIL) 400 MG/5ML SUSR suspension Take 5 mL by mouth 3 times daily. 1 Bottle 0 Review of Systems Constitutional: Positive for fever and fatigue. Negative for appetite change. HENT: Negative. Eyes: Negative. Respiratory: Negative. Cardiovascular: Negative. Gastrointestinal: Negative. Genitourinary: Positive for dysuria. Musculoskeletal: Negative. Skin: Negative. Neurological: Negative. Hematological: Negative. Pulse 112 Temp 98.9 ??F Resp 18 Wt 22.5 kg (49 lb 9.7 oz) SpO2 98% Physical Exam Constitutional: He appears well-nourished. He is active. No distress. HENT: Right Ear: Tympanic membrane normal. Left Ear: Tympanic membrane normal. Mouth/Throat: Oropharynx is clear. Cardiovascular: Normal rate and regular rhythm. Pulses are strong. No murmur heard. Pulmonary/Chest: Effort normal and breath sounds normal. There is normal air entry. No respiratory distress. He exhibits no retraction. Abdominal: Soft. Bowel sounds are normal. Neurological: He is alert. Skin: Skin is warm. Capillary refill takes less than 3 seconds. No rash noted. Procedures Procedures EKG Interpretation Lab/SPO2 Interpretation Medical Decision Making I have reviewed the: Nursing Notes and Vitals. I have interpreted the following results: Labs and X-Ray. I have discussed the case with Family/Caregiver. I have personally seen and examined this patient. I have fully participated in the care of this patient. I have reviewed all pertinent clinical information available to me during this encounter, including history, physical exam and plan. I have reviewed available labs and radiographic studies. I reviewed the nurses notes I reviewed the vital signs Progress Notes ED Plan/Course 4yo with fever mild dysuria -U/A negative except for ketones -mild WBC elevation, RUL infiltrate on CXR -will d/c home on abx, contact PMD--unable to contact Clinical Impression Encounter Diagnoses Name Primary? Viral infection ??? Pneumonia, organism unspecified ICAL MEDICAL ASSISTANT * Mahin Cooper, DO - 05/11/2010 4:39 PM CST 05/11/2010 4:39 PM Ramsey Becerril [id number] [facility] EMERGENCY DEPT History Chief Complaint Patient presents with ??? Fever 1 d. h/o fever Tmax 104; seen by Dr. Reynolds today and sent here for further eval; denies cough. dec po today; uop x1 today. lungs clear. HPI Comments: Pt saw Dr. Reynolds today and he wanted pt to come in for further evaluation of CXR and blood work. Fever The history is provided by the patient and parent. This is a recurrent problem. The current episodestarted 6 to 12 hours ago. The problem occurs intermittent. The problem has not changed since onset. The maximum temperature noted was 103 - 104 F. There has been sleepiness, cough, ear pain and decreased urine volume. There has been no diarrhea, no congestion and no headaches.It is unknown what precipitates the cough. The cough is non-productive. He has tried ibuprofen for the symptoms. The treatment provided mild relief. The patient was able to tolerate oral intake. No past medical history on file. No past surgical history on file. History Social History ??? Marital Status: Single Spouse Name: N/A Number of Children: N/A ??? Years of Education: N/A Occupational History ??? Not on file. Social History Main Topics ??? Smoking status: Not on file ??? Smokeless tobacco: Not on file ??? Alcohol Use: Not on file ??? Drug Use: Not on file ??? Sexually Active: Not on file Other Topics Concern ??? Not on file Social History Narrative ??? No narrative on file Medications Current outpatient prescriptions Medication Sig Dispense Refill ??? ibuprofen (ADVIL; MOTRIN) 100 MG/5ML SUSP suspension Take 150 mg by mouth every 6 hours as needed. Review of Systems Constitutional: Positive for fever. HENT: Positive for ear pain. Negative for congestion. Respiratory: Positive for cough. Negative for wheezing. Gastrointestinal: Negative for nausea, abdominal pain and diarrhea. Genitourinary: Positive for dysuria and decreased urine volume. Neurological: Negative for headaches. Pulse 128 Temp 98.9 ??F Resp 28 Wt 22.5 kg (49 lb 9.7 oz) SpO2 98% Physical Exam Constitutional: No distress. HENT: Head: Atraumatic. Right Ear: Tympanic membrane normal. Left Ear: Tympanic membrane normal. Nose: No nasal discharge. Mouth/Throat: Mucous membranes are moist. Oropharynx is clear. Eyes: Extraocular motions are normal. Pupils are equal, round, and reactive to light. Right eye exhibits no discharge. Left eye exhibits no discharge. Neck: Normal range of motion. Neck supple. No adenopathy. Cardiovascular: Regular rhythm. No murmur heard. Pulmonary/Chest: Effort normal and breath sounds normal. Abdominal: Soft. Bowel sounds are normal. He exhibits distension. No tenderness. Musculoskeletal: Normal range of motion. Neurological: He is alert. No cranial nerve deficit. Coordination normal. Skin: Skin is warm. He is diaphoretic. Procedures Procedures EKG Interpretation Lab/SPO2 Interpretation Medical Decision Making Progress Notes ED Plan/Course Clinical Impression No diagnosis found. ICAL MEDICAL ASSISTANT documented in this encounter Miscellaneous Notes * Miscellaneous Scans - Document, Scanned - 06/26/2010 7:36 AM CDT * Miscellaneous Scans - Document, Scanned - 06/25/2010 12:04 PM CDT documented in this encounter Plan of Treatment Not on file documented as of this encounter Procedures Procedure Name Priority Date/Time Associated Diagnosis Comments DIFFERENTIAL MANUAL STAT 05/11/2010 8 :24 PM CLINICAL MEDICAL ASSISTANT CBC W AUTO DIFFERENTIAL STAT 05/11/2010 8:24 PM CLINICAL MEDICAL ASSISTANT CULTURE BLOOD Timed 05/11/2010 6:50 PM CLINICAL MEDICAL ASSISTANT XR CHEST 2VW STAT 05/11/2010 6:40 PM CLINICAL MEDICAL ASSISTANT Viral infection URINALYSIS REFLEX TO MICROSCOPIC NO CULTURE STAT 05/11/2010 5:35 PM CLINICAL MEDICAL ASSISTANT CULTURE URINE STAT 05/11/2010 5:35 PM CLINICAL MEDICAL ASSISTANT documented in this encounter Results * (ABNORMAL) DIFFERENTIAL MANUAL (05/11/2010 8:24 PM CLINICAL MEDICAL ASSISTANT) Comment Manual Diff Done [facility] Band % Manual 10 % [facility] Neutrophils % Manual 52 20 - 70 % [facility] Lymphocytes % Manual 22 16 - 70 % [facility] Monocytes % Manual 14(H) 3 - 13 % [facility] Atypical Lymphocyte % Manual 2 % [facility] RBC Morphology Slight Anisocytosis Poikylocytosis [facility] BLOOD SPECIMEN / Unknown 05/11/2010 8:24 PM CLINICAL MEDICAL ASSISTANT 05/11/2010 8:32 PM CLINICAL MEDICAL ASSISTANT Janette Benites MD LAB - HEMATOLOGY ORD ERABLES Performing Organization Address City/[facility] Co de Phone Number [facility] [address] [place] [address] * (ABNORMAL) CBC W AUTO DIFFERENTIAL (05/11/2010 8:24 PM CLINICAL MEDICAL ASSISTANT) WBC 17.89(H) 5.0 - 14.5 K/cumm [facility] RBC 4.15 3.90 - 5.30 mill/cumm [facility] Hemoglobin 11.6 11.5 - 13.5 gm/dl [facility] Hematocrit 33.3(L) 34.0 - 40.0 % [facility] MCV 80.2 75.0 - 87.0 cu microns [facility] MCH 28.0 24.0 - 30.0 uug [facility] MCHC 34.8 31.0 - 37.0 % [facility] RDW 13.4 % [facility] MPV 8.6 fl [facility] Platelet Count 220 100 - 400 K/cumm [facility] Comment Manual Diff Done [facility] BLOOD SPECIMEN / Unknown 05/11/2010 8:24 PM CLINICAL MEDICAL ASSISTANT 05/11/2010 8:26 PM CLINICAL MEDICAL ASSISTANT Janette Benites MD LAB - HEMATOLOGY ORD ERABLES Performing Organization Address City/[facility] Co de Phone Number [facility] [address] [place] [address] * CULTURE BLOOD (05/11/2010 6:50 PM CLINICAL MEDICAL ASSISTANT) Result [facility] Comment: Final No growth in 5 days. PERIPHERAL BLOOD / Unknown 05/11/2010 6:50 PM CLINICAL MEDICAL ASSISTANT 05/11/2010 7:12 PM CLINICAL MEDICAL ASSISTANT Narrative Resulting Agency Comment Performed By [facility];[address] [place] [address];[place] [id number] Mahin Cooper DO LAB - MICROBIOLOGY O RDERABLES [facility] [place] [address] * XR CHEST PA AND LATERAL (05/11/2010 6:40 PM CLINICAL MEDICAL ASSISTANT) Anatomical Region Laterality Modality Chest Radiographic Marylu ging 05/12/2010 8:00 AM CLINICAL MEDICAL ASSISTANT Impressions 05/12/2010 8:00 AM CLINICAL MEDICAL ASSISTANT Probable round pneumonia, right upper lobe. Recommend followup examination after completion of treatment to exclude underlying mass. Narrative 05/12/2010 8:00 AM CLINICAL MEDICAL ASSISTANT Chest PA and lateral No prior examinations are available for comparison. The cardiomediastinal silhouette is normal. A rounded opacity is present in the right upper lobe in the posterior segment. The lungs are otherwise free of peripheral opacity. Procedure Note Chiara Phillips MD - 05/12/2010 Chest PA and lateral No prior examinations are available for comparison. The cardiomediastinal silhouette is normal. A rounded opacity is present in the right upper lobe in the posterior segment. The lungs are otherwise free of peripheral opacity. IMPRESSION Probable round pneumonia, right upper lobe. Recommend followup examination after completion of treatment to exclude underlying mass. Mahin Cooper DO DIAGNOSTIC IMAGING O RDERABLES * CULTURE URINE (05/11/2010 5:35 PM CLINICAL MEDICAL ASSISTANT) Result [facility] Comment: Final CULTURE <1000 CFU/mL (No growth) URINE SPECIMEN OBTAINED BY CLEAN CATCH PROCEDURE / Unknown 05/11/2010 5:35 PM CLINICAL MEDICAL ASSISTANT 05/11/2010 6:14 PM CLINICAL MEDICAL ASSISTANT Narrative Resulting Agency Comment Performed By [facility];[address] [place] [address];[place] [address] Janette Benites MD LAB - MICROBIOLOGY O RDERABLES Performing Organization Address [facility] de Phone Number [facility] [address] [place] [address] * (ABNORMAL) URINALYSIS ROUTINE AUTO (05/11/2010 5:35 PM CLINICAL MEDICAL ASSISTANT) Color UA YELLOW [facility] Character UA SL CLOUDY [facility] Specific [place] UA >=1.030 1.003 - 1.030 [facility] pH UA 6.0 5.0 - 8.0 [facility] Protein UA 1+ Negative [facility] Glucose UA NEGATIVE Negative gm/dl [facility] Ketone UA 3+(AA) Negative [facility] Blood UA NEGATIVE Negative [facility] Bilirubin UA NEGATIVE Negative [facility] Reducing Substances UA 1/4(H) Negative % [facility] WBC UA 2-4 /HPF [facility] Epithelial Cell UA 0-2 /HPF [facility] Crystals UA Small Amorphous [facility] Mucus UA mod [facility] Bacteria UA sm [facility] Leukocyte UA NEGATIVE [facility] Nitrite UA NEGATIVE [facility] Urobilinogen UA 0.2 <=1.0 EU/dl [facility] URINE SPECIMEN OBTAINED BY CLEAN CATCH PROCEDURE / Unknown 05/11/2010 5:35 PM CLINICAL MEDICAL ASSISTANT 05/11/2010 6:14 PM CLINICAL MEDICAL ASSISTANT Janette Benites MD LAB - URINALYSIS ORD ERABLES Performing Organization Address [facility] Phone Number [facility] [facility] [address] [place] [address] documented in this encounter Visit Diagnoses Diagnosis Unspecified viral infection, in conditions classified elsewhere and of unspecified site Pneumonia, organism unspecified(486) Pneumonia, organism unspecified documented in this encounter Administered Medications Inactive Administered Medications - up to 3 most recent administrations Medication Order MAR Action Action Date Dose Rate Site ibuprofen (ADVIL; MOTRIN) suspension 220 mg 220 mg (9.78 mg/kg), Oral, ONCE, 1 dose, On Mon05/11/10 at 1999, Shake well before using $ Given 05/11/2010 8:03 PM CLINICAL MEDICAL ASSISTANT 220 mg ibuprofen (ADVIL; MOTRIN) suspension ADS Med 1 dose, Starting on Mon05/11/10 at 2001, Until Mon05/11/10 at 2003, RONALD FOURNIER: Cabinet Override documented in this encounter Active and Recently Administered Medications Times are shown in CLINICAL MEDICAL ASSISTANT. Scheduled Medication Order 05/09/2010 05/10/2010 05/11/2010 ibuprofen (ADVIL; MOTRIN) suspension 220 mg (COMPLETED) 220 mg (9.78 mg/kg), Oral, ONCE, 1 dose, On Mon05/11/10 at 2000, Shake well before using 2002 ($ Given - Prov ider: Ronald Fournier RN) documented in this encounter Care Teams Retail Sales Consultant Relationship Specialty Start Date End Date Irene Reynolds MD [address] [facility] [address] [place] [address] PCP - General 05/11/10 09/07/10 documented as of this encounter
--- OUTSIDE RECORDS SUMMARY | 2024-02-29 16:03 | XMS_ITS | Referral Summary ---
Author Organization [facility] Address [address] [place] [address] Care Team Providers Care Physicians Assistant Name Role Phone Angela Bobby MD Primary Care Provider [phone] Source Comments [facility],non-owned Affiliates and Associated Physician Practices is amultiple site organization consisting of ambulatory clinics and hospital sitesin [place], [place], [place] and [place]. This disclosure is being madepursuant to the Care Everywhere program and may not contain all information available regarding this patient. Last updated 17.[facility] Allergies Active Allergy Reactions Criticality Noted Date [...] Comments Blood Pressure 99/57 05/11/2010 7:58 PM MASSAGE COORDINATOR Pulse 120 05/11/2010 9:47 PM MASSAGE COORDINATOR Temperature 38.2 ??C (100.8 ??F) 05/11/2010 9:[address] Respiratory Rate 28 05/11/2010 9:47 PM MASSAGE COORDINATOR Oxygen Saturation 98% 05/11/2010 9:47 PM MASSAGE COORDINATOR RA Inhaled Oxygen Concentration - - Weight 22.5 kg (49 lb 9.7 oz) 05/11/2010 4:12 PM MASSAGE COORDINATOR Height - - Body Mass Index - - Plan of Treatment Not on file Care Teams Physicians Assistant Relationship Specialty Start Date End Date Angela Bobby MD [address] [id number] PCP - General 09/08/10
--- OUTSIDE RECORDS SUMMARY | 2024-02-29 16:38 | XMS_ITS | Referral Summary ---
Author Organization [facility] Address [address] [place] [address] Care Team Providers Care Engine Research Engineer Name Role Phone Angela Bobby MD Primary Care Provider [phone] Source Comments [facility],non-owned Affiliates and Associated Physician Practices is amultiple site organization consisting of ambulatory clinics and hospital sitesin [place], [place] and [place]. This disclosure is being madepursuant to the Care Everywhere program and may not contain all information available regarding this patient. Last updated 17.[facility] Allergies Active Allergy Reactions Criticality Noted Date [...] Comments Blood Pressure 99/57 05/11/2010 7:58 PM NETTING INSPECTOR Pulse 120 05/11/2010 9:47 PM NETTING INSPECTOR Temperature 38.2 ??C (100.8 ??F) 05/11/2010 9:[address] Respiratory Rate 28 05/11/2010 9:47 PM NETTING INSPECTOR Oxygen Saturation 98% 05/11/2010 9:47 PM NETTING INSPECTOR RA Inhaled Oxygen Concentration - - Weight 22.5 kg (49 lb 9.7 oz) 05/11/2010 4:12 PM NETTING INSPECTOR Height - - Body Mass Index - - Plan of Treatment Not on file Care Teams Engine Research Engineer Relationship Specialty Start Date End Date Angela Bobby MD [address] [id number] PCP - General 09/08/10
--- OUTSIDE RECORDS SUMMARY | 2024-02-29 16:38 | XMS_ITS | Encounter Summary ---
Author Organization [facility] Address [address] [place] [address] Care Team Providers Care Car Repairer Pullman Name Role Phone Irene Reynolds MD Primary Care Provider [phone] Reason for Visit * Reason Comments Fever 1 d. h/o fever Tmax 104; seen by Dr. Reynolds today and sent here for further eval; denies cough. dec po today; uop x1 today. lungs clear. Encounter Details Date Type Department Care Team (Late st Contact Info) Description 05/11/2010 3:51 PM RETAIL EQUIPMENT ASSOCIATE - 05/11/2010 9:49 PM RETAIL EQUIPMENT ASSOCIATE Emergency ER at [address] [address] Janette Benites MD [address] [place], [place] [id number] Viral infection; Pneumonia, organism unspecified Discharge Disposition: [...] Comments Blood Pressure 99/57 05/11/2010 7:58 PM RETAIL EQUIPMENT ASSOCIATE Pulse 120 05/11/2010 9:47 PM RETAIL EQUIPMENT ASSOCIATE Temperature 38.2 ??C (100.8 ??F) 05/11/2010 9:[address] Respiratory Rate 28 05/11/2010 9:47 PM RETAIL EQUIPMENT ASSOCIATE Oxygen Saturation 98% 05/11/2010 9:47 PM RETAIL EQUIPMENT ASSOCIATE RA Inhaled Oxygen Concentration - - Weight 22.5 kg (49 lb 9.7 oz) 05/11/2010 4:12 PM RETAIL EQUIPMENT ASSOCIATE Height - - Body Mass Index - - documented in this encounter Discharge Instructions * Discharge Instructions* Ronald Fournier RN - 05/11/2010 9:35 PM RETAIL EQUIPMENT ASSOCIATE Antibiotic Treatment and Drug Resistance Antibiotics are [...] Document Re-Released: 08/15/2008 ExitCare?? Patient Information ??2009 PLAXD. Viral Illness Your exam indicates you have [...] as cough, pain, or diarrhea. Only take [id number] or prescription medicines for pain, discomfort, or [...] Document Re-Released: 08/15/2008 ExitCare?? Patient Information ??2009 PLAXD. Pneumonia Pneumonia is an infection of the [...] to be coughed up. ?? Only take [id number] or prescription medicines for pain, discomfort, or [...] Document Re-Released: 05/26/2009 ExitCare?? Patient Information ??2009 PLAXD. [place] EQUIPMENT ASSOCIATE * Discharge Instructions* Document, Scanned - 05/24/2010 [...] fluids & all verbalize understanding. NAD noted. [place] EQUIPMENT ASSOCIATE * Ronald Fournier RN - 05/11/2010 7:25 PM CST BS report received from Briseyda Nova RN & care assumed. Pt awake & alert. Pt tearful from blood draw. Pt denies any other pain/discomfort. LCTA with good aeration, MMM, pt crying tears, no s/s resp distress or WOB noted. [place] EQUIPMENT ASSOCIATE * Briseyda Fenton RN - 05/11/2010 6:59 PM CST Pt has had chest xray complete. Back in room eating popsicle Parents at bedside. [place] EQUIPMENT ASSOCIATE * Briseyda Fenton RN - 05/11/2010 6:19 PM CST Pt eating and taking juice. Voices no c/o at this time Parents at bedside updated on plan. [place] EQUIPMENT ASSOCIATE * Briseyda Fenton RN - 05/11/2010 5:47 PM CST Pt attempted to give urine mom instructed how to cleanse , pt could not give specimen at this time Dr Benites has been in to speak to dad while pt was in the bathroom. [place] EQUIPMENT ASSOCIATE * Janette Benites MD - 05/11/2010 5:15 PM CST 05/11/2010 5:15 PM Ramsey Becerril [id number] [facility] EM[facility]ENC[facility]PT History Chief Complaint Patient presents [...] Primary? Viral infection ??? Pneumonia, organism unspecified [place] EQUIPMENT ASSOCIATE * Mahin Cooper, DO - 05/11/2010 4:39 PM CST 05/11/2010 4:39 PM Ramsey Becerril [id number] [facility]PT History Chief Complaint Patient presents [...] ED Plan/Course Clinical Impression No diagnosis found. [place] EQUIPMENT ASSOCIATE documented in this encounter Miscellaneous Notes * Miscellaneous Scans - Document, Scanned - 06/26/2010 7:36 AM CDT * Miscellaneous Scans - Document, Scanned - 06/25/2010 12:04 PM CDT documented in this encounter Plan of Treatment Not on file documented as of this encounter Procedures Procedure Name Priority Date/Time Associated Diagnosis Comments DIFFERENTIAL MANUAL STAT 05/11/2010 8 :24 PM RETAIL EQUIPMENT ASSOCIATE CBC W AUTO DIFFERENTIAL STAT 05/11/2010 8:24 PM RETAIL EQUIPMENT ASSOCIATE CULTURE BLOOD Timed 05/11/2010 6:50 PM RETAIL EQUIPMENT ASSOCIATE XR CHEST 2VW STAT 05/11/2010 6:40 PM RETAIL EQUIPMENT ASSOCIATE Viral infection URINALYSIS REFLEX TO MICROSCOPIC NO CULTURE STAT 05/11/2010 5:35 PM RETAIL EQUIPMENT ASSOCIATE CULTURE URINE STAT 05/11/2010 5:35 PM RETAIL EQUIPMENT ASSOCIATE documented in this encounter Results * (ABNORMAL) DIFFERENTIAL MANUAL (05/11/2010 8:24 PM RETAIL EQUIPMENT ASSOCIATE) Comment Manual Diff Done [facility] Band % Manual 10 % [facility] Neutrophils % Manual 52 20 - 70 % [facility] Lymphocytes % Manual 22 16 - 70 % [facility] Monocytes % Manual 14(H) 3 - 13 % [facility] Atypical Lymphocyte % Manual 2 % [facility] RBC Morphology Slight Anisocytosis Poikylocytosis [facility] BLOOD SPECIMEN / Unknown 05/11/2010 8:24 PM RETAIL EQUIPMENT ASSOCIATE 05/11/2010 8:32 PM RETAIL EQUIPMENT ASSOCIATE Janette Benites MD LAB - HEMATOLOGY ORD ERABLES Performing Organization Address City/[facility] Co de Phone Number [facility] [address] [place] [address] * (ABNORMAL) CBC W AUTO DIFFERENTIAL (05/11/2010 8:24 PM RETAIL EQUIPMENT ASSOCIATE) WBC 17.89(H) 5.0 - 14.5 K/cumm [facility] RBC 4.15 3.90 - 5.30 mill/cumm [facility] Hemoglobin 11.6 11.5 - 13.5 gm/dl [facility] Hematocrit 33.3(L) 34.0 - 40.0 % [facility] MCV 80.2 75.0 - 87.0 cu microns [facility] MCH 28.0 24.0 - 30.0 uug [facility] MCHC 34.8 31.0 - 37.0 % [facility] RDW 13.4 % [facility] MPV 8.6 fl [facility] Platelet Count 220 100 - 400 K/cumm [facility] Comment Manual Diff Done [facility] BLOOD SPECIMEN / Unknown 05/11/2010 8:24 PM RETAIL EQUIPMENT ASSOCIATE 05/11/2010 8:26 PM RETAIL EQUIPMENT ASSOCIATE Janette Benites MD LAB - HEMATOLOGY ORD ERABLES Performing Organization Address City/[facility] Co de Phone Number [facility] [address] [place] [address] * CULTURE BLOOD (05/11/2010 6:50 PM RETAIL EQUIPMENT ASSOCIATE) Result [facility] Comment: Final No growth in 5 days. PERIPHERAL BLOOD / Unknown 05/11/2010 6:50 PM RETAIL EQUIPMENT ASSOCIATE 05/11/2010 7:12 PM RETAIL EQUIPMENT ASSOCIATE Narrative Resulting Agency Comment Performed By [facility];[address] [place] [address];[place] [id number] Mahin Cooper DO LAB - MICROBIOLOGY O RDERABLES [facility] [place] [address] * XR CHEST PA AND LATERAL (05/11/2010 6:40 PM RETAIL EQUIPMENT ASSOCIATE) Anatomical Region Laterality Modality Chest Radiographic Marylu ging 05/12/2010 8:00 AM RETAIL EQUIPMENT ASSOCIATE Impressions 05/12/2010 8:00 AM RETAIL EQUIPMENT ASSOCIATE Probable round pneumonia, right upper lobe. Recommend followup examination after completion of treatment to exclude underlying mass. Narrative 05/12/2010 8:00 AM RETAIL EQUIPMENT ASSOCIATE Chest PA and lateral No prior examinations [...] RDERABLES * CULTURE URINE (05/11/2010 5:35 PM RETAIL EQUIPMENT ASSOCIATE) Result [facility] Comment: Final CULTURE <1000 CFU/mL (No growth) URINE SPECIMEN OBTAINED BY CLEAN CATCH PROCEDURE / Unknown 05/11/2010 5:35 PM RETAIL EQUIPMENT ASSOCIATE 05/11/2010 6:14 PM RETAIL EQUIPMENT ASSOCIATE Narrative Resulting Agency Comment Performed By [facility];[address] [place] [address];[place] [address] Janette Benites MD LAB - MICROBIOLOGY O RDERABLES Performing Organization Address [facility] de Phone Number [facility] [address] [place] [address] * (ABNORMAL) URINALYSIS ROUTINE AUTO (05/11/2010 5:35 PM RETAIL EQUIPMENT ASSOCIATE) Color UA YELLOW [facility] Character UA SL CLOUDY [facility] Specific Barry UA >=1.030 1.003 - 1.030 [facility] pH UA 6.0 5.0 - 8.0 [facility] Protein UA 1+ Negative [facility] Glucose UA NEGATIVE Negative gm/dl [facility] Ketone UA 3+(AA) Negative [facility] Blood UA NEGATIVE Negative [facility] Bilirubin UA NEGATIVE Negative [facility] Reducing Substances UA 1/4(H) Negative % [facility] WBC UA 2-4 /HPF [facility] Epithelial Cell UA 0-2 /HPF [facility] Crystals UA Small Amorphous [facility] Mucus UA mod [facility] Bacteria UA sm [facility] Leukocyte UA NEGATIVE [facility] Nitrite UA NEGATIVE [facility] Urobilinogen UA 0.2 <=1.0 EU/dl [facility] URINE SPECIMEN OBTAINED BY CLEAN CATCH PROCEDURE / Unknown 05/11/2010 5:35 PM RETAIL EQUIPMENT ASSOCIATE 05/11/2010 6:14 PM RETAIL EQUIPMENT ASSOCIATE Janette Benites MD LAB - URINALYSIS ORD ERABLES Performing Organization Address [facility] Phone Number [facility] [address] [place] [address] documented in this encounter Visit Diagnoses Diagnosis [...] before using $ Given 05/11/2010 8:03 PM RETAIL EQUIPMENT ASSOCIATE 220 mg ibuprofen (ADVIL; MOTRIN) suspension ADS Med 1 dose, Starting on Mon05/11/10 at 2001, Until Mon05/11/10 at 2003, RONALD FOURNIER: Cabinet Override documented in this encounter Active and Recently Administered Medications Times are shown in RETAIL EQUIPMENT ASSOCIATE. Scheduled Medication Order 05/09/2010 05/10/2010 05/11/2010 ibuprofen (ADVIL; MOTRIN) suspension 220 mg (COMPLETED) 220 mg (9.78 mg/kg), Oral, ONCE, 1 dose, On Mon05/11/10 at 2000, Shake well before using 2002 ($ Given - Prov ider: Ronald Fournier RN) documented in this encounter Care Teams Car Repairer Pullman Relationship Specialty Start Date End Date Irene Reynolds MD [address] [place] [address] PCP - General 05/11/10 09/07/10 documented as of this encounter
--- OUTSIDE RECORDS SUMMARY | 2024-02-29 16:38 | XMS_ITS | Encounter Summary ---
Author Organization [facility] Address [address] [place] [address] Care Team Providers Care Tree Tapping Laborer Name Role Phone Angela Bobby MD Primary Care Provider [phone] Encounter Details Date Type Department Care Team (Latest Contact Info) Description 09/08/2010 10:08 AM CDT - 09/08/2010 11:59 PM T Hospital Encounter [facility] Pediatrics - Radiology [address] [place] [address] Angela Bobby MD [address] [facility] [address] [place] [address] Radiology Diagnostic Discharge Disposition: Home or Self [...] on filedocumented in this encounter Care Teams Tree Tapping Laborer Relationship Specialty Start Date End Date Angela Bobby MD [address] [facility] [address] [place] [address] PCP - General 09/08/10 documented as of this encounter
--- OUTSIDE RECORDS SUMMARY | 2024-02-29 16:38 | XMS_ITS | Encounter Summary ---
Author Organization [facility] Address [address] [place] [address] Care Team Providers Care Soap Tender Name Role Phone Angela Bobby MD Primary Care Provider [phone] Encounter Details Date Type Department Care Team (Latest Contact Info) Description 09/08/2010 10:25 AM CDT - 09/08/2010 11:59 PM CDT Hospital Encounter [facility] Pediatrics - Radiology [address] [place] [address] Discharge Disposition: Home or Self Care Social [...] examination documented in this encounter Care Teams Soap Tender Relationship Specialty Start Date End Date Angela Bobby MD [address] [facility] [address] [place] [address] PCP - General 09/08/10 documented as of this encounter
--- OUTSIDE RECORDS SUMMARY | 2024-02-29 16:38 | XMS_ITS | Clinical Summary ---
Author Organization [facility] Address [address] [place] [address] Care Team Providers Care Harness Inspector Name Role Phone Angela Bobby MD Primary Care Provider [phone] Source Comments [facility],non-owned Affiliates and Associated Physician Practices is amultiple site organization consisting of ambulatory clinics and hospital sitesin [place] and [place]. This disclosure is being madepursuant to the Care Everywhere program and may not contain all information available regarding this patient. Last updated 17.[facility] Allergies Active Allergy Reactions Criticality Noted Date [...] Comments Blood Pressure 99/57 05/11/2010 7:58 PM HIM CODER Pulse 120 05/11/2010 9:47 PM HIM CODER Temperature 38.2 ??C (100.8 ??F) 05/11/2010 9:[address] Respiratory Rate 28 05/11/2010 9:47 PM HIM CODER Oxygen Saturation 98% 05/11/2010 9:47 PM HIM CODER RA Inhaled Oxygen Concentration - - Weight 22.5 kg (49 lb 9.7 oz) 05/11/2010 4:12 PM HIM CODER Height - - Body Mass Index - [...] age to complete this topic Care Teams Harness Inspector Relationship Specialty Start Date End Date Angela Bobby MD [address] [place] [address] PCP - General 09/08/10
--- OUTSIDE RECORDS SUMMARY | 2024-02-29 16:38 | XMS_ITS | Patient Health Summary ---
Author Organization [facility] Address [address] [place] [address] Care Team Providers Care Combatant Diver Officer Name Role Phone Angela Bobby MD Primary Care Provider [phone] Note from [facility],non-owned Affiliates and Associated Physician Practices is amultiple site organization consisting of ambulatory clinics and hospital sitesin [place], [place], [place] and [place]. This disclosure is being madepursuant to the Care Everywhere program and may not contain all information available regarding this patient. Last updated 17.[facility] Allergies * Cefdinir(Rash) -High Criticality Medications [...] Comments Blood Pressure 99/57 05/11/2010 7:58 PM HUMAN RESOURCE ANALYST Pulse 120 05/11/2010 9:47 PM HUMAN RESOURCE ANALYST Temperature 38.2 ??C (100.8 ??F) 05/11/2010 9:[address] Respiratory Rate 28 05/11/2010 9:47 PM HUMAN RESOURCE ANALYST Oxygen Saturation 98% 05/11/2010 9:47 PM HUMAN RESOURCE ANALYST RA Inhaled Oxygen Concentration - - Weight 22.5 kg (49 lb 9.7 oz) 05/11/2010 4:12 PM HUMAN RESOURCE ANALYST Height - - Body Mass Index - [...] * (ABNORMAL) DIFFERENTIAL MANUAL (05/11/2010 8:24 PM HUMAN RESOURCE ANALYST) Comment Manual Diff Done [facility] Band % Manual 10 % [facility] Neutrophils % Manual 52 20 - 70 % [facility] Lymphocytes % Manual 22 16 - 70 % [facility] Monocytes % Manual 14(H) 3 - 13 % [facility] Atypical Lymphocyte % Manual 2 % [facility] RBC Morphology Slight Anisocytosis Poikylocytosis [facility] BLOOD SPECIMEN / Unknown 05/11/2010 8:24 PM HUMAN RESOURCE ANALYST 05/11/2010 8:32 PM HUMAN RESOURCE ANALYST Janette Benites MD LAB - HEMATOLOGY ORD ERABLES Performing Organization Address [facility] [place]/[facility] Co de Phone Number [facility] [address] [place] [address] * (ABNORMAL) CBC W AUTO DIFFERENTIAL (05/11/2010 8:24 PM HUMAN RESOURCE ANALYST) WBC 17.89(H) 5.0 - 14.5 K/cumm [facility] RBC 4.15 3.90 - 5.30 mill/cumm [facility] Hemoglobin 11.6 11.5 - 13.5 gm/dl [facility] Hematocrit 33.3(L) 34.0 - 40.0 % [facility] MCV 80.2 75.0 - 87.0 cu microns [facility] MCH 28.0 24.0 - 30.0 uug [facility] MCHC 34.8 31.0 - 37.0 % [facility] RDW 13.4 % [facility] MPV 8.6 fl [facility] Platelet Count 220 100 - 400 K/cumm [facility] Comment Manual Diff Done [facility] BLOOD SPECIMEN / Unknown 05/11/2010 8:24 PM HUMAN RESOURCE ANALYST 05/11/2010 8:26 PM HUMAN RESOURCE ANALYST Janette Benites MD LAB - HEMATOLOGY ORD ERABLES Performing Organization Address [facility] [place]/[facility] Co de Phone Number [facility] [address] [place] [id number] * CULTURE BLOOD (05/11/2010 6:50 PM HUMAN RESOURCE ANALYST) Result [facility] Comment: Final No growth in 5 days. PERIPHERAL BLOOD / Unknown 05/11/2010 6:50 PM HUMAN RESOURCE ANALYST 05/11/2010 7:12 PM HUMAN RESOURCE ANALYST Narrative Resulting Agency Comment Performed By [facility];[address] [place] [address];[place] [address] Mahin Cooper DO LAB - MICROBIOLOGY O RDERABLES Performing Organization Address [facility] [place]/ZIP Co de Phone Number [facility] [address] [place] [address] * (ABNORMAL) URINALYSIS ROUTINE AUTO (05/11/2010 5:35 PM HUMAN RESOURCE ANALYST) Color UA YELLOW [facility] Character UA SL CLOUDY [facility] Specific [place] UA >=1.030 1.003 - 1.030 [facility] pH UA 6.0 5.0 - 8.0 [facility] Protein UA 1+ Negative [facility] Glucose UA NEGATIVE Negative gm/dl [facility] Ketone UA 3+(AA) Negative [facility] Blood UA NEGATIVE Negative [facility] Bilirubin UA NEGATIVE Negative [facility] Reducing Substances UA 1/4(H) Negative % [facility] WBC UA 2-4 /HPF [facility] Epithelial Cell UA 0-2 /HPF [facility] Crystals UA Small Amorphous [facility] Mucus UA mod [facility] Bacteria UA sm [facility] Leukocyte UA NEGATIVE [facility] Nitrite UA NEGATIVE [facility] Urobilinogen UA 0.2 <=1.0 EU/dl [facility] URINE SPECIMEN OBTAINED BY CLEAN CATCH PROCEDURE / Unknown 05/11/2010 5:35 PM HUMAN RESOURCE ANALYST 05/11/2010 6:14 PM HUMAN RESOURCE ANALYST Janette Benites MD LAB - URINALYSIS ORD ERABLES Performing Organization Address City/[facility] [place]/[facility] Co de Phone Number [facility] [place] [address] * CULTURE URINE (05/11/2010 5:35 PM HUMAN RESOURCE ANALYST) Result [facility] Comment: Final CULTURE <1000 CFU/mL (No growth) URINE SPECIMEN OBTAINED BY CLEAN CATCH PROCEDURE / Unknown 05/11/2010 5:35 PM HUMAN RESOURCE ANALYST 05/11/2010 6:14 PM HUMAN RESOURCE ANALYST Narrative Resulting Agency Comment Performed By [facility];[address] [facility];[place] [address] Janette Benites MD LAB - MICROBIOLOGY O RDERABLES Performing Organization Address City/[facility] [place]/ZIP Co de Phone Number [facility] [address] [place] [id number] Care Teams Combatant Diver Officer Relationship Specialty Start Date End Date Angela Bobby MD [address] [place] [address] [facility] - General 09/08/10
== END 2024-02-25 13:01 | disposition home or self-care (01) ==
PROVIDERS: Emergency Provider Emergency Medicine; PCP Pediatrics
DX: J36 Peritonsillar abscess (principal); Z20.822 Contact with and (suspected) exposure to COVID-19
CPT/HCPCS: 36415; 42700; 70491; 80053; 83605; 85025; 87040; 87637; 87651; 96365; 96366; 96367; 96375; 99284; A9270; J0295; J1100; J1885; J2003; J7030; Q9967